=== PATIENT | male | born 1985 | race Caucasian/White ===

== ENCOUNTER → 2016-06-25 | Outpatient (CLI) | payer BC ==
--- NOTE | 2016-06-25 10:20 | CR ---
EXAMINATION: Right wrist HISTORY: Fracture COMPARISON: 01/15/2016, 05/10/2016 TECHNIQUE: 3 views FINDINGS/IMPRESSION: There is a single screw fixating a mid right scaphoid fracture. Remaining osseo us structures and joint spaces appear intact. Mild disuse osteopenia is noted.
== END ==
LOC: MW.CHPS 08:15
PROVIDERS: ATTEND Plastic Surgery
DX: S62.024K Nondisplaced fracture of middle third of navicular [scaphoid] bone of right wrist, subsequent encounter for fracture with nonunion (principal); Z96.7 Presence of other bone and tendon implants; M85.831 Other specified disorders of bone density and structure, right forearm
CPT/HCPCS: 73110-26-RT; 73110-RT

== ENCOUNTER → 2016-07-22 | Outpatient (CLI) | payer BC ==
--- NOTE | 2016-07-22 11:07 | CR ---
EXAMINATION: Right wrist HISTORY: Fracture COMPARISON: Radiographs dated 06/25/2016 TECHNIQUE: 3 views FINDINGS/IMPRESSION: There is a single screw noted fixating a mid scaphoid fracture, unchanged in po sition and alignment. There is increased ossific density along the ulnar aspect of the fracture, thi s could suggest osseous bridging. The remaining osseous structures and joint spaces appear stable.
== END ==
LOC: MW.CHPS 08:29
PROVIDERS: ATTEND Plastic Surgery
DX: S62.024K Nondisplaced fracture of middle third of navicular [scaphoid] bone of right wrist, subsequent encounter for fracture with nonunion (principal); Z96.7 Presence of other bone and tendon implants
CPT/HCPCS: 73110-26-RT; 73110-RT

== ENCOUNTER → 2016-08-06 | Outpatient (CLI) | payer BC ==
--- NOTE | 2016-08-06 10:23 | CR ---
EXAMINATION: Right wrist HISTORY: Fracture COMPARISON: 07/22/2016 TECHNIQUE: 3 views FINDINGS/IMPRESSION: There is a single screw fixating a mid right scaphoid fracture. There is increa sing mineralization within the fracture line suggesting osseous bridging. There is accessory ossific ation adjacent to the proximal third metacarpal.
== END ==
LOC: MW.CHPS 07:55
PROVIDERS: ATTEND Plastic Surgery
DX: S62.024K Nondisplaced fracture of middle third of navicular [scaphoid] bone of right wrist, subsequent encounter for fracture with nonunion (principal); Z96.7 Presence of other bone and tendon implants
CPT/HCPCS: 73110-26-RT; 73110-RT

== ENCOUNTER 2018-08-23 00:13 | Emergency (ER) | payer BC ==
[2018-08-23] MEDS ORDERED: Ondansetron 4 MG/2 ML SDV IVPUSH ONE (00:19)
[2018-08-23] MEDS ORDERED: Ketorolac 30 MG/ML SDV IVPUSH ONE (00:25)
[2018-08-23] MEDS ORDERED: Ketorolac 30 MG/ML SDV ONE (00:26)
[2018-08-23] MEDS ORDERED: Sodium Chloride 0.9% 1,000 ML IV SCH (00:30)
--- NOTE | 2018-08-23 00:36 | EDM.PDOC ---
ED HPI GENERAL MEDICAL PROBLEM - General Chief Complaint: Abdominal Pain Stated Complaint: ABD PAIN Time Seen by Provider: 08/23/18 01:01 - History of Present Illness INITIAL COMMENTS - FREE TEXT/NARRATIVE: HISTORY AND PHYSICAL: History of present illness: Patient is a 32-year-old white male presents with concern of right-sided abdominal pain came on somewhat acutely earlier today there's been no associated vomiting he's had loose stool but no diarrhea denies urinary symptoms denies trauma denies fever chills or other complaints. Review of systems: As per history of present illness and below otherwise all systems reviewed and negative. Past medical history: As per history of present illness and as reviewed below otherwise noncontributory. Surgical history: As per history of present illness and as reviewed below otherwise noncontributory. Social history: No reported history of drug or alcohol abuse. Family history: As per history of present illness and as reviewed below otherwise noncontributory. Physical exam: HEENT: Atraumatic, normocephalic, pupils reactive, negative for conjunctival pallor or scleral icterus, mucous membranes moist, throat clear, neck supple, nontender, trachea midline. Lungs: Clear to auscultation, breath sounds equal bilaterally, chest nontender. Heart: S1S2, regular, negative for clicks, rubs, or JVD. Abdomen: Soft, nondistended, nonlocalized right-sided abdominal tenderness. Negative for masses or hepatosplenomegaly. Negative for costovertebral tenderness. Pelvis: Stable nontender. Genitourinary: Deferred. Rectal: Deferred. Extremities: Atraumatic, negative for cords or calf pain. Neurovascular unremarkable. Neuro: Awake, alert, oriented. Cranial nerves II through XII unremarkable. Cerebellum unremarkable. Motor and sensory unremarkable throughout. Exam nonfocal. Diagnostics: CBC CMP and lipase UA UDS CT abdomen and pelvis Therapeutics: Toradol 30 mg IV Zofran 4 mg IV saline 1 L bolus Impression: #1 right-sided abdominal pain Definitive disposition and diagnosis as appropriate pending reevaluation and review of above. RLQ abdomen Pain Score (Numeric/FACES): 10 - Related Data Allergies Allergy/AdvReac Type Severity Reaction Status Date / Time No Known Allergies Allergy Verified 08/23/18 00:17 Home Meds: Home Meds . [No Known Home Meds] 08/23/18 [History] Past Medical History HEENT History: Reports: Impaired Vision Other HEENT History: wears glasses/contacts Cardiovascular History: Reports: None Respiratory History: Reports: Other (See Below) Gastrointestinal History: Reports: GERD Genitourinary History: Reports: None Musculoskeletal History: Reports: Fracture Other Musculoskeletal History: left wrist and left ankle. RIGHT ELBOW AND WRIST. Neurological History: Reports: None Psychiatric History: Reports: None Endocrine/Metabolic History: Reports: None Hematologic History: Reports: None Immunologic History: Reports: None Oncologic (Cancer) History: Reports: None Dermatologic History: Reports: None - Infectious Disease History Infectious Disease History: Reports: None - Past Surgical History Head Surgeries/Procedures: Reports: None Cardiovascular Surgical History: Reports: None GI Surgical History: Reports: None Endocrine Surgical History: Reports: None Neurological Surgical History: Reports: None Musculoskeletal Surgical History: Reports: Other (See Below) Other Musculoskeletal Surgeries/Procedures:: right forearm sx Oncologic Surgical History: Reports: None Dermatological Surgical History: Reports: None - History Comment History Comment: etoh "occasional" Social & Family History - Family History Family Medical History: Noncontributory - Tobacco Use Smoking Status *Q: Never Smoker - Recreational Drug Use Recreational Drug Use: No ED ROS GENERAL - Review of Systems Review Of Systems: ROS reveals no pertinent complaints other than HPI. ED EXAM, GENERAL - Physical Exam Exam: See Below (See dictated) Course - Vital Signs Last Recorded V/S: Last Vital Signs Temp 36.3 C 08/23/18 00:13 Pulse 72 08/23/18 00:13 Resp 18 08/23/18 00:13 BP 163/98 H 08/23/18 00:13 Pulse Ox 97 08/23/18 00:13 - Orders/Labs/Meds Orders: Active Orders 24 hr Category Date Time Status COMPREHENSIVE METABOLIC PN,CMP [CHEM] Stat Lab 08/23/18 00:20 Received UA W/MICROSCOPIC [URIN] Stat Lab 08/23/18 00:20 Results Sodium Chloride 0.9% [Normal Saline] 1,000 ml Med 08/23/18 00:30 Active IV ASDIRECTED Medication Orders Sodium Chloride (Normal Saline) 1,000 mls @ 999 mls/hr IV ASDIRECTED OMAR Last Admin: 08/23/18 00:30 Dose: 999 mls/hr Labs: Laboratory Tests 08/23/18 08/23/18 08/23/18 Range/Units 00:20 00:20 00:20 WBC 11.19 H (4.0-11.0) K/uL RBC 5.18 (4.50-5.90) M/uL Hgb 15.9 (13.0-17.0) g/dL Hct 45.6 (38.0-50.0) % MCV 88.0 (80.0-98.0) fL MCH 30.7 (27.0-32.0) pg MCHC 34.9 (31.0-37.0) g/dL RDW Std Deviation 38.4 (28.0-62.0) fl RDW Coeff of Eddie 12 (11.0-15.0) % Plt Count 241 (150-400) K/uL MPV 10.00 (7.40-12.00) fL Neut % (Auto) 50.0 (48.0-80.0) % Lymph % (Auto) 38.9 (16.0-40.0) % [place] % (Auto) 7.9 (0.0-15.0) % Eos % (Auto) 2.9 (0.0-7.0) % Baso % (Auto) 0.3 (0.0-1.5) % Neut # (Auto) 5.6 (1.4-5.7) K/uL Lymph # (Auto) 4.4 H (0.6-2.4) K/uL [place] # (Auto) 0.9 H (0.0-0.8) K/uL Eos # (Auto) 0.3 (0.0-0.7) K/uL Baso # (Auto) 0.0 (0.0-0.1) K/uL Urine Color YELLOW Urine Appearance HAZY Urine pH 5.0 (5.0-8.0) Ur Specific [place] 1.025 (1.001-1.035) Urine Protein NEGATIVE (NEGATIVE) mg/dL Urine Glucose (UA) NEGATIVE (NEGATIVE) mg/dL Urine Ketones NEGATIVE (NEGATIVE) mg/dL Urine Occult Blood LARGE H (NEGATIVE) Urine Nitrite NEGATIVE (NEGATIVE) Urine Bilirubin NEGATIVE (NEGATIVE) Urine Urobilinogen 0.2 (<2.0) EU/dL Ur Leukocyte Esterase NEGATIVE (NEGATIVE) Urine Opiates Screen NEGATIVE (NEGATIVE) Ur Oxycodone Screen NEGATIVE (NEGATIVE) Urine Methadone Screen NEGATIVE (NEGATIVE) Ur Barbiturates Screen NEGATIVE (NEGATIVE) Ur Phencyclidine Scrn NEGATIVE (NEGATIVE) Ur Amphetamine Screen NEGATIVE (NEGATIVE) U Methamphetamines Scrn NEGATIVE (NEGATIVE) U Benzodiazepines Scrn NEGATIVE (NEGATIVE) U Cocaine Metab Screen NEGATIVE (NEGATIVE) U Marijuana (THC) Screen NEGATIVE (NEGATIVE) Meds: Medications Generic Name Dose Route Start Last Admin Trade Name Freq PRN Reason Stop Dose Admin Sodium Chloride 1,000 mls @ 999 mls/hr 08/23/18 00:30 08/23/18 00:30 Normal Saline IV 999 mls/hr ASDIRECTED OMAR Administration Discontinued Medications Generic Name Dose Route Start Last Admin Trade Name Freq PRN Reason Stop Dose Admin Ketorolac Tromethamine 30 mg 08/23/18 00:25 08/23/18 00:32 Toradol IVPUSH 08/23/18 00:26 30 mg ONETIME ONE Administration Ketorolac Tromethamine Confirm 08/23/18 00:26 08/23/18 00:32 Toradol Administered 08/23/18 00:27 Not Given Dose 30 mg .ROUTE .STK-MED ONE Ondansetron HCl 4 mg 08/23/18 00:19 08/23/18 00:30 Zofran IVPUSH 08/23/18 00:20 4 mg ONETIME ONE Administration Departure - Departure Time of Disposition: 01:01 Disposition: Home, Self-Care 01 Condition: Good Clinical Impression: Ureterolithiasis - Discharge Information Referrals: PCP,None [Primary Care Provider] - Forms: ED Department Discharge Additional Instructions: The following information is given to patients seen in the emergency department who are being discharged to home. This information is to outline your options for follow-up care. We provide all patients seen in our emergency department with a follow-up referral. The need for follow-up, as well as the timing and circumstances, are variable depending upon the specifics of your emergency department visit. If you don't have a primary care physician on staff, we will provide you with a referral. We always advise you to contact your personal physician following an emergency department visit to inform them of the circumstance of the visit and for follow-up with them and/or the need for any referrals to a consulting specialist. The emergency department will also refer you to a specialist when appropriate. This referral assures that you have the opportunity for followup care with a specialist. All of these measure are taken in an effort to provide you with optimal care, which includes your followup. Under all circumstances we always encourage you to contact your private physician who remains a resource for coordinating your care. When calling for followup care, please make the office aware that this follow-up is from your recent emergency room visit. If for any reason you are refused follow-up, please contact the [facility] emergency department at and asked to speak to the emergency department charge nurse. [facility] - Urology [address] [place] [id number] Hydrocodone Flomax Zofran is prescribed follow-up urology call to schedule appointment return as needed as scheduled - My Orders Last 24 Hours: My Active Orders 08/23/18 00:20 COMPREHENSIVE METABOLIC PN,CMP [CHEM] Stat UA W/MICROSCOPIC [URIN] Stat 08/23/18 00:30 Sodium Chloride 0.9% [Normal Saline] 1,000 ml IV ASDIRECTED - Assessment/Plan Last 24 Hours: My Active Orders 08/23/18 00:20 COMPREHENSIVE METABOLIC PN,CMP [CHEM] Stat UA W/MICROSCOPIC [URIN] Stat 08/23/18 00:30 Sodium Chloride 0.9% [Normal Saline] 1,000 ml IV ASDIRECTED
--- NOTE | 2018-08-23 00:57 | CT ---
INDICATION: Right lower quadrant pain TECHNIQUE: CT Abdomen and pelvis without i.v. contrast. Coronal and sagittal reformats were obtained. COMPARISON: None FINDINGS: Lower chest: Unremarkable. Liver: Unremarkable. Spleen: Unremarkable. Pancreas: Unremarkable. Gallbladder: Unremarkable. Kidney: There is a 5 mm stone present in the distal right ureter, just proximal to the ureterovesicular junction causing mild right hydroureter and mild right renal pelviectasis. Adrenal: Unremarkable. Bowel: Unremarkable. The appendix is normal in appearance and size. Vascular: Unremarkable. Lymph: Unremarkable. Peritoneum: Unremarkable. Mild nonspecific ground-glass infiltration of the mesenteric root is noted. No pneumoperitoneum is seen. No significant ascites is noted. Pelvis: Unremarkable. Soft tissue: Unremarkable. Bone: Unremarkable for age. IMPRESSION: 1. There is a 5 mm stone present in the distal right ureter, just proximal to the ureterovesicular junction causing mild right hydroureter and mild right renal pelviectasis. Dictated by Esau Mercado MD @ 08/23/2018 12:55:32 AM Please note that all CT scans at this facility use dose modulation, iterative reconstruction, and/or weight-based dosing when appropriate to reduce radiation dose to as low as reasonably achievable. Dictated by: Esau Mercado MD @ 08/23/2018 00:56:25 (Electronically Signed)
[2018-08-23] MEDS ORDERED: Tamsulosin 0.4 MG Cap.ER PO ONE (01:01)
[2018-08-23] MEDS ORDERED: HYDROmorphone 1 MG/ML Syringe IVPUSH ONE (01:01)
[2018-08-23 01:07] LABS: CHLORIDE,CL 103 mmol/L (98-107); SODIUM,NA 141 mmol/L (136-148)
[2018-08-23 01:25] VITALS: BP 163/98
== END 2018-08-23 01:43 | disposition home or self-care (01) ==
LOC: MW.ED 00:13
DX: N20.1 Calculus of ureter (principal)
CPT/HCPCS: 74176; 80053; 80305; 81001; 85025; 96361; 96374; 96375; 99284; A9270; J1170; J1885; J2405; J7040

== ENCOUNTER 2018-08-25 08:38 | Day surgery (SDC) | payer BC ==
[~2018-08-25 08:38] MED LIST: Iopamidol 200-M 10 ML vial ITHECAL ONE; Lactated Ringers 1,000 ML IV SCH; Sodium Chloride 0.9% 10 ML SDV IV PRN; Sodium Chloride 0.9% 10 ML Syringe FLUSH PRN; Sodium Chloride 0.9% 2.5 ML Syringe FLUSH PRN; ceFAZolin 1 GM Vial IV ONE
--- NOTE | 2018-08-25 09:32 | PCM.PREANE ---
Preanesthetic Assessment - Anesthesia/Transfusion/Family Hx Anesthesia History: Prior Anesthesia Without Reaction (surgery on wrist x3, scaphoid fx) Transfusion History: No Prior Transfusion(s) - Review of Systems General: No Symptoms Pulmonary: No Symptoms Cardiovascular: No Symptoms Gastrointestinal: Abdominal Pain Neurological: No Symptoms Other: Reports: None - Physical Assessment Height: 5 ft 6 in Weight: 91.172 kg ASA Class: 2 Mental Status: Alert & Oriented x3 Airway Class: Mallampati = 2 (full squires) Dentition: Reports: Normal Dentition ROM/Head Extension: Full Lungs: Clear to Auscultation, Normal Respiratory Effort Cardiovascular: Regular Rate, Regular Rhythm - Allergies Allergies/Adverse Reactions: Allergies Allergy/AdvReac Type Severity Reaction Status Date / Time No Known Allergies Allergy Verified 08/24/18 16:36 - Blood Blood Available: No - Anesthesia Plan Pre-Op Medication Ordered: None - Acknowledgements Anesthesia Type Planned: General Anesthesia Pt an Appropriate Candidate for the Planned Anesthesia: Yes Alternatives and Risks of Anesthesia Discussed w Pt/Guardian: Yes Pt/Guardian Understands and Agrees with Anesthesia Plan: Yes Additional Comments: Corrections to H&P: 3 prior surgeries, never a smoker, on hydrocodone and flomax PMH: ureteral stone, no other PLAN: ga/lma PreAnesthesia Questionnaire HEENT History: Reports: Other (See Below) Other HEENT History: wears glasses/contacts Cardiovascular History: Reports: None Respiratory History: Reports: Other (See Below) Gastrointestinal History: Reports: GERD Genitourinary History: Reports: None Musculoskeletal History: Reports: Fracture Other Musculoskeletal History: hx of fx right hand, left wrist and ankle Neurological History: Reports: None Psychiatric History: Reports: None Endocrine/Metabolic History: Reports: Obesity/BMI 30+ Hematologic History: Reports: None Immunologic History: Reports: None Oncologic (Cancer) History: Reports: None Dermatologic History: Reports: None - Infectious Disease History Infectious Disease History: Reports: None - Past Surgical History Musculoskeletal Surgical History: Reports: ORIF Other Musculoskeletal Surgeries/Procedures:: ORIF right hand- hardware removed - History Comment History Comment: etoh "occasional" - SUBSTANCE USE Smoking Status *Q: Former Smoker Tobacco Use Within Last Twelve Months: No Recreational Drug Use History: No - HOME MEDS Home Medications: Home Meds Hydrocodone/Acetaminophen [Hydrocodon-Acetaminophn 10-325] 1 tab PO ASDIRECTED PRN 08/24/18 [History] Ondansetron [Zofran] 4 mg PO ASDIRECTED PRN 08/24/18 [History] Tamsulosin [Flomax] 0.4 mg PO DAILY 08/24/18 [History] - CURRENT (IN HOUSE) MEDS Current Meds: Current Medications Lactated Ringer's (Ringers, Lactated) 1,000 mls @ 100 mls/hr IV ASDIRECTED OMAR Sodium Chloride (Saline Flush) 10 ml FLUSH ASDIRECTED PRN PRN Reason: Keep Vein Open Sodium Chloride (Saline Flush) 2.5 ml FLUSH ASDIRECTED PRN PRN Reason: Keep Vein Open Sodium Chloride (Normal Saline) 10 ml IV ASDIRECTED PRN PRN Reason: IV Use Discontinued Medications Cefazolin Sodium (Ancef) 1 gm IV ONCALL ONE Stop: 08/25/18 00:02 Iopamidol (Isovue-M 200) Confirm Administered Dose 20 ml ITHECAL .STK-MED ONE Stop: 08/25/18 07:32
[2018-08-25] MEDS ORDERED: Rocuronium 100 MG/10 ML Syringe ONE (10:05)
[2018-08-25] MEDS ORDERED: Ondansetron 4 MG/2 ML SDV ONE (10:05)
[2018-08-25] MEDS ORDERED: Propofol 200 MG/20 ML SDV ONE (10:06)
[2018-08-25] MEDS ORDERED: fentaNYL 250 MCG/5 ML SDV ONE (10:06)
[2018-08-25] MEDS ORDERED: Midazolam 1 MG/ML 2 ML SDV ONE (10:06)
[2018-08-25] MEDS ORDERED: Neostigmine Methylsulfate 1 MG/ML 5 ML Syringe ONE (10:50)
[2018-08-25] MEDS ORDERED: Glycopyrrolate 0.2 MG/ML SDV ONE (10:50)
[2018-08-25] MEDS: fentaNYL 100 MCG/2 ML SDV IVPUSH PRN ×2 (11:49→11:58)
--- NOTE | 2018-08-25 12:09 | PCM.POSTAN ---
POST ANESTHESIA ASSESSMENT - MENTAL STATUS Mental Status: Alert, Oriented - RESPIRATORY Respiratory Status: Respiratory Rate WNL, Airway Patent, O2 Saturation Stable - CARDIOVASCULAR CV Status: Pulse Rate WNL, Blood Pressure Stable - GASTROINTESTINAL GI Status: No Symptoms - POST OP HYDRATION Hydration Status: Adequate & Stable
--- NOTE | 2018-08-25 12:57 | OR ---
SURGEON: Ganesh Mcmullen M.D. DATE OF PROCEDURE: 08/25/2018 PREOPERATIVE DIAGNOSIS: Right lower ureteral stone. POSTOPERATIVE DIAGNOSIS: Right lower ureteral stone. OPERATION: Right ureteroscopy with stone removal. DESCRIPTION OF PROCEDURE: The patient was given general anesthesia. He was placed in dorsal lithotomy position, prepped and draped in sterile drapes. Cystourethroscopy was done and that was normal. A guidewire was advanced in the right ureter alongside the stone all the way up into the upper ureter. The lower ureteral stone was then dilated using the UroMax II balloon dilator to approximately 15-Thai that was limited to the intramural portion of the ureter. With that done, the guidewire was still in place. The rigid ureteroscope was advanced in the ureter, the stone was visualized, and removed on the first attempt. With that done, the guidewire was removed, the bladder was emptied, the stone was submitted, and the patient was moved to recovery room in good condition. JUANCHO / JEREMY /[id number]
[2018-08-25 14:12] VITALS: BP 114/68
--- NOTE | 2018-08-25 15:04 | PCM48HPAN ---
Post Anesthesia Note - EVALUATION WITHIN 48HRS OF ANESTHETIC Vital Signs in Normal Range: Yes Patient Participated in Evaluation: Yes Respiratory Function Stable: Yes Airway Patent: Yes Cardiovascular Function Stable: Yes Hydration Status Stable: Yes Pain Control Satisfactory: Yes Nausea and Vomiting Control Satisfactory: Yes Mental Status Recovered: Yes Resp Rate: 16
--- NOTE | 2018-08-25 16:31 | CR ---
EXAMINATION: Pelvis HISTORY: Right ureteroscopy COMPARISON: CT dated 08/23/2018 TECHNIQUE: Single fluoroscopic images provided FINDINGS/IMPRESSION: Operative control films demonstrate selection of the right ureter with an inflated balloon at the right ureterovesicular junction.
== END 2018-08-25 13:20 | disposition home or self-care (01) ==
LOC: MW.SDS 08:38
PROVIDERS: ATTEND Urology
DX: N20.1 Calculus of ureter (principal); F17.210 Nicotine dependence, cigarettes, uncomplicated; Z79.1 Long term (current) use of non-steroidal anti-inflammatories (NSAID); Z79.899 Other long term (current) drug therapy
CPT/HCPCS: 52352; 76000; J0690; J2001; J2250; J2405; J2704; J3010; J3490; J7120; Q9966; 00918; 88300; C1769